=== PATIENT | male | born 1995 | race Caucasian/White ===

== ENCOUNTER 2024-12-03 13:54 | Emergency (ER) | payer MEDICAID ==
[~2024-12-03] VITALS: Ht 185.4 cm; Wt 63.0 kg
[2024-12-03 13:58] VITALS: TEMP 97.8
[2024-12-03 14:27] LABS: BASOPHILS % (AUTO) 0.1 % (0.0-2.0); EOSINOPHILS % (AUTO) 1.1 % (1.0-6.0); HEMATOCRIT 48.9 % (41-53); HEMOGLOBIN 16.4 g/dL (13.5-17.5); LYMPHOCYTES # (AUTO) 1.5 K/uL (1.0-4.8); LYMPHOCYTES % (AUTO) 12.4 % (22.0-44.0); MEAN CORPUSCULAR HEMOGLOBIN 30.8 pg (26.0-34.0); MEAN CORPUSCULAR HGB CONC 33.5 G/dL (31.0-37.0); MEAN CORPUSCULAR VOLUME 92 fL (80-100); MONOCYTES # (AUTO) 0.4 K/uL (0.1-1.0); MONOCYTES % (AUTO) 3.6 % (2.0-9.0); NEUTROPHILS # (AUTO) 10.1 K/uL (1.8-7.7); NEUTROPHILS % (AUTO) 82.8 % (40.0-70.0); PLATELET COUNT (AUTO) 314 K/uL (150-450); RED CELL DISTRIBUTION WIDTH 13.6 % (11.5-14.5); WHITE BLOOD COUNT (AUTO) 12.2 K/uL (4.5-11.0)
[2024-12-03] MEDS ORDERED: IOHEXOL 350 MG/ML 100 ML VIAL ONE (14:32)
[2024-12-03] MEDS ORDERED: SODIUM CHLORIDE 0.9% 100 ML ONE (14:32)
[2024-12-03 14:34] LABS: ANION GAP 6 mmol/L (8-16); CALCIUM, TOTAL 9.6 mg/dL (8.8-10.5); CARBON DIOXIDE 28 mmol/L (22-29); CHLORIDE 101 mmol/L (98-107); CREATININE 0.91 mg/dL (0.60-1.30); GLOMERULAR FILTR. RATE CALC > 60 mL/min (>60); GLUCOSE,RANDOM 114 mg/dL (70-110); LIPASE 23 U/L (16-77); POTASSIUM 4.7 mmol/L (3.5-5.1); SODIUM SERUM 135 mmol/L (136-145); UREA NITROGEN, BLOOD 20 mg/dL (7-18)
[2024-12-03 14:41] LABS: ALBUMIN 4.2 g/dL (3.4-5.0); BILIRUBIN,DIRECT 0.2 mg/dL (0.00-0.20); BILIRUBIN,TOTAL 0.6 mg/dL (0.1-1.0); TOTAL PROTEIN, SERUM 8.4 g/dL (6.4-8.2)
[2024-12-03] MEDS: SODIUM CHLORIDE 0.9% 1,000 ML IV ONE (15:37)
[2024-12-03] MEDS: MORPHINE SULFATE 2 MG/ML SYRINGE IVP ONE (15:37)
[2024-12-03] MEDS: FAMOTIDINE 20 MG/2 ML VIAL IVP ONE (15:38)
[2024-12-03] MEDS: ONDANSETRON HCL 4 MG/2 ML VIAL IVP ONE (15:38)
[2024-12-03] MEDS: KETOROLAC TROMETHAMINE 30 MG/ML VIAL IVP ONE (15:38)
[2024-12-03 16:46] VITALS: BP 126/53; PULSE 61; RESP 18; O2SAT 99
[2024-12-03] MEDS ORDERED: ONDA-104 PO (16:47)
== END 2024-12-03 17:10 | disposition home or self-care (01) ==
LOC: EMS 13:54
DX: K52.9 Noninfective gastroenteritis and colitis, unspecified (principal)
CPT/HCPCS: 99285; 74177; 96374; 96375; 76705; 96361; 80048; 80076; 83690; 85025; 36415; J1885; Q9967; J3490; J2270; J2405; J7030; J7050